=== PATIENT | female | born 1945 | race Hispanic/Latino ===

== ENCOUNTER 2017-07-08 11:02 | Inpatient (IN) | payer OTHER ==
[~2017-07-08] VITALS: Ht 167.6 cm; Wt 78.0 kg
[2017-07-08] MEDS ORDERED: ONDANSETRON HCL MDV 20ML 2 MG/ML VIAL ONE (11:19)
[2017-07-08 11:25] LABS: BASOPHILS % (AUTO) 0.2 % (0.0-5.0); EOSINOPHILS % (AUTO) 0.2 % (0.0-8.0); HEMATOCRIT 32.5 % (36-48); LYMPHOCYTES % (AUTO) 2.5 % (21.0-51.0); MEAN CORPUSCULAR HEMOGLOBIN 26.4 pg (27.0-33.0); MEAN CORPUSCULAR HGB CONC 31.7 g/dL (32.0-36.0); MEAN CORPUSCULAR VOLUME 83.4 fL (79-99); MONOCYTES % (AUTO) 1.2 % (3.0-13.0); NEUTROPHILS % (AUTO) 95.9 % (40.0-77.0); NUCLEATED RED BLOOD CELLS 0.1 % (0.0-0.19); PLATELET COUNT (AUTO) 205 K/uL (130-400); RED CELL DISTRIBUTION WIDTH 14.7 % (11.0-15.5); WHITE BLOOD COUNT (AUTO) 13.2 K/uL (4.8-10.8)
[2017-07-08 11:40] LABS: ALBUMIN 2.1 g/dL (3.5-5.0); BILIRUBIN,TOTAL 0.3 mg/dL (0.2-1.0); CREATININE 2.2 mg/dL (0.5-1.5); POTASSIUM 4.6 mmol/L (3.5-5.1); TOTAL PROTEIN, SERUM 6.5 g/dL (6.0-8.3)
[2017-07-08 12:29] LABS: BILIRUBIN,URINE NEGATIVE (NEGATIVE); COLOR,URINE YELLOW (YELLOW); GLUCOSE, URINE (UA) >=1000 mg/dL (NEGATIVE); KETONES,URINE 15 mg/dL (NEGATIVE); LEUKOCYTE ESTERASE ,URINE MODERATE (NEGATIVE); NITRATE,URINE POSITIVE (NEGATIVE); OCCULT BLOOD,URINE LARGE (NEGATIVE); PH,URINE 5.5 (5.0-8.0); PROTEIN,URINE 100 (NEGATIVE); UROBILINOGEN,URINE 0.2 mg/dL (0.2-1.0)
[2017-07-08 12:35] LABS: APPEARANCE,URINE HAZY (CLEAR)
[2017-07-08 12:39] LABS: BACTERIA,URINE Moderate /HPF (None Seen); SQUAMOUS EPITHELIAL CELL,UR Few /HPF (0-2); WBC,URINE TNTC /HPF (0-1)
[2017-07-08] MEDS ORDERED: INSULIN HUMULIN R 100 UNIT/ML 3ML ONE (12:39)
[2017-07-08 12:50] LABS: ABG BASE EXCESS -13.1 mmol/L (-2.0-3.0); ABG HCO3 9.5 mmol/L (21.0-28.0); ABG OXYGEN SATURATION 97.5 % (95.0-99.0); ABG PCO2 < 18 mmHg (32-45)
[2017-07-08] MEDS ORDERED: CEFTRIAXONE SODIUM 1 GM ONE (13:32)
[2017-07-08] MEDS ORDERED: SODIUM CHLORIDE 0.9% 100 ML IV ONE (13:32)
[2017-07-08] MEDS ORDERED: SODIUM CHLORIDE 0.9% 1000ML 1,000 ML IV ONE (13:51)
[2017-07-08] MEDS ORDERED: CLONIDINE HCL 0.1 MG TABLET PO PRN (14:15)
[2017-07-08] MEDS ORDERED: GLUCAGON 1MG KIT 1 MG ML IM PRN (14:15)
[2017-07-08] MEDS ORDERED: LACTULOSE 20 GM/30 ML UDCUP PO PRN (14:15)
[2017-07-08] MEDS ORDERED: INSULIN IV SS1 SQ PRN ×2 (14:15)
[2017-07-08] MEDS ORDERED: ACETAMINOPHEN 325 MG TAB PO PRN ×2 (14:15)
[2017-07-08] MEDS ORDERED: ONDANSETRON HCL MDV 20ML 2 MG/ML VIAL IVP PRN (14:15)
[2017-07-08] MEDS ORDERED: DEXTROSE 50%-WATER 50 ML DISP.SYRIN IV PRN (14:15)
[2017-07-08] MEDS: SODIUM CHLORIDE 0.9% 1000ML 1,000 ML IV SCH ×2 (14:15→20:55)
[2017-07-08] MEDS ORDERED: ENOXAPARIN SODIUM 30 MG/0.3 ML SQ ONE (18:18)
[2017-07-08 19:58] LABS: CREATININE 2.1 mg/dL (0.5-1.5)
[2017-07-08] MEDS ORDERED: HYDRALAZINE HCL 20 MG/ML VIAL IV PRN (22:30)
[2017-07-08] MEDS ORDERED: NOREPINEPHRINE BITARTRATE 1 MG/1 ML ML IV ONE (23:21)
[2017-07-08 23:54] LABS: ABG BASE EXCESS -10.9 mmol/L (-2.0-3.0); ABG HCO3 12.6 mmol/L (21.0-28.0); ABG OXYGEN SATURATION 96.6 % (95.0-99.0); ABG PCO2 22 mmHg (32-45)
[2017-07-09] VITALS (47 sets, daily range): BP systolic 76–152; BP diastolic 34–119
[2017-07-09 00:12] LABS: POTASSIUM 3.8 mmol/L (3.5-5.1)
[2017-07-09] MEDS ORDERED: INSULIN HUMULIN R 100 UNIT/ML 3ML ONE (00:30)
[2017-07-09] MEDS: SODIUM CHLORIDE 0.9% 1000ML 1,000 ML IV SCH ×4 (03:35→23:35)
[2017-07-09 04:03] LABS: BASOPHILS % (AUTO) 0.2 % (0.0-5.0); EOSINOPHILS % (AUTO) 0.3 % (0.0-8.0); HEMATOCRIT 26.8 % (36-48); LYMPHOCYTES % (AUTO) 3.8 % (21.0-51.0); MEAN CORPUSCULAR HEMOGLOBIN 27.6 pg (27.0-33.0); MEAN CORPUSCULAR HGB CONC 34.5 g/dL (32.0-36.0); MEAN CORPUSCULAR VOLUME 79.9 fL (79-99); MONOCYTES % (AUTO) 5.4 % (3.0-13.0); NEUTROPHILS % (AUTO) 90.3 % (40.0-77.0); PLATELET COUNT (AUTO) 184 K/uL (130-400); RED BLOOD CELL COUNT(AUTO) 3.35 MIL/uL (4.00-5.50); RED CELL DISTRIBUTION WIDTH 14.5 % (11.0-15.5); WHITE BLOOD COUNT (AUTO) 19.1 K/uL (4.8-10.8)
[2017-07-09 04:18] LABS: HEMOGLOBIN A1C 14.2 % (4.0-6.0)
[2017-07-09] MEDS: DEXTROSE 5 % AND 0.9 % NACL 1,000 ML IV SCH ×4 (04:24→18:22)
[2017-07-09 04:30] LABS: POTASSIUM 3.5 mmol/L (3.5-5.1)
[2017-07-09 08:31] LABS: CREATININE 1.9 mg/dL (0.5-1.5); POTASSIUM 3.3 mmol/L (3.5-5.1)
[2017-07-09] MEDS ORDERED: ENOXAPARIN SODIUM 30 MG/0.3 ML SQ SCH (09:00)
[2017-07-09 09:04] LABS: ABG BASE EXCESS -9.4 mmol/L (-2.0-3.0); ABG HCO3 12.3 mmol/L (21.0-28.0); ABG OXYGEN SATURATION 94.8 % (95.0-99.0); ABG PCO2 19 mmHg (32-45)
[2017-07-09] MEDS ORDERED: ACETAMINOPHEN 650 MG SUPPOSITORY RC ONE (09:29)
[2017-07-09] MEDS ORDERED: ACETAMINOPHEN 650 MG SUPPOSITORY RC PRN (10:00)
[2017-07-09] MEDS ORDERED: ACETAMINOPHEN 650 MG SUPPOSITORY RC SCH (10:00)
[2017-07-09] MEDS ORDERED: DIATR MEGLU/DIATRIZOATE SODIUM 30 ML BOTTLE ONE (10:16)
[2017-07-09] MEDS: MEROPENEM 500 MG VIAL IVP SCH ×2 (11:27→22:19)
[2017-07-09] MEDS ORDERED: CEFTRIAXONE SODIUM 1 GM IVP SCH (13:00)
[2017-07-09] MEDS ORDERED: MEROPENEM 500MG+NS 50ML 50 ML IV SCH (14:00)
[2017-07-09] MEDS ORDERED: NOREPINEPHRINE 4MG/NS 250ML 250 ML IV SCH (14:15)
[2017-07-09 14:47] LABS: POTASSIUM 2.9 mmol/L (3.5-5.1)
[2017-07-09] MEDS: POTASSIUM CHLORIDE 20MEQ/100ML 100 ML IV PRN ×2 (15:00→22:20)
[2017-07-09] MEDS: LIDOCAINE HCL-MPF 1% 2ML VIAL IVP PRN ×2 (15:01→22:20)
[2017-07-09 15:32] LABS: ABG BASE EXCESS -10.5 mmol/L (-2.0-3.0); ABG HCO3 11.8 mmol/L (21.0-28.0); ABG OXYGEN SATURATION 97.6 % (95.0-99.0); ABG PCO2 20 mmHg (32-45)
[2017-07-09] MEDS ORDERED: LACTATED RINGERS 1000ML 1,000 ML IV ONE (15:45)
[2017-07-09] MEDS ORDERED: LACTATED RINGERS 1000ML IV SCH (15:45)
[2017-07-09 16:08] LABS: POTASSIUM 3.2 mmol/L (3.5-5.1)
[2017-07-09] MEDS: IPRATROPIUM/ALBUTEROL SULFATE 3 ML SOLUTION IH SCH ×2 (18:00→23:11)
[2017-07-09] MEDS ORDERED: FUROSEMIDE 10 MG/ML 4ML VIAL ONE (18:02)
[2017-07-09] MEDS ORDERED: FLUCONAZOLE 200 MG/NS 100 ML 100 ML ONE (18:08)
[2017-07-09] MEDS: FUROSEMIDE 10 MG/ML 4ML VIAL IV SCH (18:10)
[2017-07-09] MEDS ORDERED: ISOVUE-370 50ML VIAL IV ONE (18:19)
[2017-07-09] MEDS: FLUCONAZOLE 200 MG/NS 100 ML 100 ML IV SCH (18:29)
[2017-07-09] MEDS ORDERED: EPHEDRINE SULFATE 50 MG/ML AMPULE ONE (18:55)
[2017-07-09] MEDS ORDERED: SUCCINYLCHOLINE CHLORIDE 20 MG/ML 10 ML VIAL ONE (18:55)
[2017-07-09] MEDS ORDERED: LIDOCAINE PF 2% 5ML ABBOJECT ONE (18:55)
[2017-07-09] MEDS ORDERED: ONDANSETRON HCL MDV 20ML 2 MG/ML VIAL ONE (18:55)
[2017-07-09] MEDS ORDERED: PROPOFOL 10 MG/ML 20ML VIAL IV ONE (18:55)
[2017-07-09] MEDS ORDERED: ROCURONIUM BROMIDE 10MG/1ML 5ML VL ONE (18:55)
[2017-07-09] MEDS ORDERED: FENTANYL CITRATE PF 50 MCG/1 ML 2ML VIAL ONE (18:56)
[2017-07-09 21:42] LABS: POTASSIUM 3.2 mmol/L (3.5-5.1)
[2017-07-10] VITALS (24 sets, daily range): BP systolic 97–146; BP diastolic 42–75
[2017-07-10 00:41] LABS: POTASSIUM 3.5 mmol/L (3.5-5.1)
[2017-07-10] MEDS: LIDOCAINE HCL-MPF 1% 2ML VIAL IVP PRN ×3 (00:59→22:30)
[2017-07-10] MEDS: POTASSIUM CHLORIDE 20MEQ/100ML 100 ML IV PRN ×3 (00:59→22:30)
[2017-07-10] MEDS: DEXTROSE 5 % AND 0.9 % NACL 1,000 ML IV SCH ×2 (01:58→08:27)
[2017-07-10 03:50] LABS: BASOPHILS % (AUTO) 0.3 % (0.0-5.0); EOSINOPHILS % (AUTO) 0.3 % (0.0-8.0); HEMATOCRIT 23.2 % (36-48); MEAN CORPUSCULAR HEMOGLOBIN 26.7 pg (27.0-33.0); MEAN CORPUSCULAR HGB CONC 33.8 g/dL (32.0-36.0); MEAN CORPUSCULAR VOLUME 79.1 fL (79-99); NEUTROPHILS % (AUTO) 83.4 % (40.0-77.0); PLATELET COUNT (AUTO) 108 K/uL (130-400); RED BLOOD CELL COUNT(AUTO) 2.93 MIL/uL (4.00-5.50); WHITE BLOOD COUNT (AUTO) 11.9 K/uL (4.8-10.8)
[2017-07-10 03:57] LABS: MAGNESIUM 1.2 mg/dL (1.80-2.40); PHOSPHORUS 0.8 mg/dL (2.5-4.9)
[2017-07-10 04:06] LABS: ABG HCO3 14.3 mmol/L (21.0-28.0); ABG PCO2 21 mmHg (32-45)
[2017-07-10 04:11] LABS: ABG BASE EXCESS -9.1 mmol/L (-2.0-3.0); ABG HCO3 12.9 mmol/L (21.0-28.0); ABG OXYGEN SATURATION 98.9 % (95.0-99.0); ABG PCO2 21 mmHg (32-45)
[2017-07-10 04:16] LABS: B-TYPE NATRIURETIC PEPTIDE 567 pg/mL (0-100)
[2017-07-10] MEDS: SODIUM CHLORIDE 0.9% 1000ML 1,000 ML IV SCH (06:15)
[2017-07-10] MEDS: IPRATROPIUM/ALBUTEROL SULFATE 3 ML SOLUTION IH SCH ×4 (06:28→23:38)
[2017-07-10] MEDS: MEROPENEM 500 MG VIAL IVP SCH (08:28)
[2017-07-10] MEDS: MAGNESIUM 2GM PREMIX 50ML 50 ML IV PRN (08:41)
[2017-07-10] MEDS ORDERED: RAMI5CAP21 PO (09:38)
[2017-07-10] MEDS ORDERED: METF10004 PO (09:38)
[2017-07-10] MEDS ORDERED: AMLO5TAB2 PO (09:38)
[2017-07-10] MEDS ORDERED: CEFTRIAXONE 2GM+NS 100ML 100 ML IV SCH (14:00)
[2017-07-10] MEDS: CEFTRIAXONE SODIUM 2 GM VIAL IVP SCH (15:44)
[2017-07-10] MEDS: FLUCONAZOLE 200 MG/NS 100 ML 100 ML IV SCH (15:45)
[2017-07-10] MEDS ORDERED: INSULIN REGULAR, HUMAN 3ML 100 UNIT in SODIUM CHLORIDE 0.9% 99 ML IV SCH ×2 (17:45)
[2017-07-10] MEDS: FUROSEMIDE 10 MG/ML 4ML VIAL IV SCH (18:00)
[2017-07-10 19:28] LABS: MAGNESIUM 1.8 mg/dL (1.80-2.40); POTASSIUM 3.1 mmol/L (3.5-5.1)
[2017-07-11] VITALS (27 sets, daily range): BP systolic 99–154; BP diastolic 47–96
[2017-07-11] MEDS ORDERED: DEXTROSE 5 % AND 0.9 % NACL 1,000 ML IV SCH
[2017-07-11] MEDS: MAGNESIUM 2GM PREMIX 50ML 50 ML IV PRN (00:45)
[2017-07-11 02:46] LABS: BASOPHILS % (AUTO) 0.1 % (0.0-5.0); CREATININE 1.9 mg/dL (0.5-1.5); EOSINOPHILS % (AUTO) 0.7 % (0.0-8.0); HEMATOCRIT 21.9 % (36-48); LYMPHOCYTES % (AUTO) 15.4 % (21.0-51.0); MEAN CORPUSCULAR HEMOGLOBIN 26.1 pg (27.0-33.0); MEAN CORPUSCULAR HGB CONC 33.1 g/dL (32.0-36.0); MEAN CORPUSCULAR VOLUME 78.7 fL (79-99); MONOCYTES % (AUTO) 6.7 % (3.0-13.0); NEUTROPHILS % (AUTO) 77.1 % (40.0-77.0); PLATELET COUNT (AUTO) 103 K/uL (130-400); POTASSIUM 3.2 mmol/L (3.5-5.1); RED BLOOD CELL COUNT(AUTO) 2.78 MIL/uL (4.00-5.50); RED CELL DISTRIBUTION WIDTH 15.2 % (11.0-15.5); WHITE BLOOD COUNT (AUTO) 9.9 K/uL (4.8-10.8)
[2017-07-11] MEDS: POTASSIUM CHLORIDE 20MEQ/100ML 100 ML IV PRN (03:04)
[2017-07-11] MEDS: LIDOCAINE HCL-MPF 1% 2ML VIAL IVP PRN (03:05)
[2017-07-11] MEDS: IPRATROPIUM/ALBUTEROL SULFATE 3 ML SOLUTION IH SCH ×3 (07:07→18:35)
[2017-07-11] MEDS: FLUCONAZOLE 200 MG/NS 100 ML 100 ML IV SCH (08:42)
[2017-07-11] MEDS: POTASSIUM CHLORIDE 10% ELIXIR 20 MEQ/15 ML UDCUP PO PRN ×2 (10:13→15:29)
[2017-07-11] MEDS: INSULIN HUMULIN R 100 UNIT/ML 3ML SQ SCH ×3 (10:30→21:00)
[2017-07-11 11:54] LABS: ABG BASE EXCESS -9.7 mmol/L (-2.0-3.0); ABG HCO3 12.3 mmol/L (21.0-28.0); ABG OXYGEN SATURATION 98.1 % (95.0-99.0); ABG PCO2 20 mmHg (32-45)
[2017-07-11] MEDS: CEFTRIAXONE SODIUM 2 GM VIAL IVP SCH (14:15)
[2017-07-11] MEDS: INSULIN HUMULIN 70/30 100 UNIT/ML 3ML SQ SCH (16:56)
[2017-07-11] MEDS: FUROSEMIDE 10 MG/ML 4ML VIAL IV SCH (17:04)
[2017-07-11 19:23] LABS: CREATININE 1.6 mg/dL (0.5-1.5); POTASSIUM 3.8 mmol/L (3.5-5.1)
[2017-07-12] VITALS (13 sets, daily range): BP systolic 110–164; BP diastolic 39–85
[2017-07-12] MEDS: IPRATROPIUM/ALBUTEROL SULFATE 3 ML SOLUTION IH SCH ×5 (00:01→23:25)
[2017-07-12 03:54] LABS: ABG BASE EXCESS -8.7 mmol/L (-2.0-3.0); ABG HCO3 13.5 mmol/L (21.0-28.0); ABG OXYGEN SATURATION 97.9 % (95.0-99.0); ABG PCO2 22 mmHg (32-45)
[2017-07-12 03:54] LABS: HEMATOCRIT 30.3 % (36-48); MEAN CORPUSCULAR HEMOGLOBIN 26.8 pg (27.0-33.0); MEAN CORPUSCULAR HGB CONC 33.7 g/dL (32.0-36.0); MEAN CORPUSCULAR VOLUME 79.4 fL (79-99); PLATELET COUNT (AUTO) 136 K/uL (130-400); RED BLOOD CELL COUNT(AUTO) 3.81 MIL/uL (4.00-5.50); RED CELL DISTRIBUTION WIDTH 15.2 % (11.0-15.5); WHITE BLOOD COUNT (AUTO) 13.7 K/uL (4.8-10.8)
[2017-07-12 04:05] LABS: CREATININE 1.6 mg/dL (0.5-1.5); POTASSIUM 3.4 mmol/L (3.5-5.1)
[2017-07-12] MEDS: POTASSIUM CHLORIDE 20 MEQ ERTAB PO PRN (06:20)
[2017-07-12] MEDS: INSULIN HUMULIN R 100 UNIT/ML 3ML SQ SCH ×4 (06:22→19:38)
[2017-07-12] MEDS: INSULIN HUMULIN 70/30 100 UNIT/ML 3ML SQ SCH ×2 (06:34→16:54)
[2017-07-12] MEDS: FLUCONAZOLE 200 MG/NS 100 ML 100 ML IV SCH (08:51)
[2017-07-12] MEDS: CEFTRIAXONE SODIUM 2 GM VIAL IVP SCH (16:34)
[2017-07-12] MEDS: FUROSEMIDE 10 MG/ML 4ML VIAL IV SCH (18:00)
[2017-07-13 03:19] VITALS: BP 137/73
[2017-07-13 04:27] LABS: HEMATOCRIT 25.5 % (36-48); MEAN CORPUSCULAR HEMOGLOBIN 27.2 pg (27.0-33.0); MEAN CORPUSCULAR HGB CONC 34.5 g/dL (32.0-36.0); MEAN CORPUSCULAR VOLUME 78.8 fL (79-99); PLATELET COUNT (AUTO) 173 K/uL (130-400); RED BLOOD CELL COUNT(AUTO) 3.24 MIL/uL (4.00-5.50); RED CELL DISTRIBUTION WIDTH 15.4 % (11.0-15.5); WHITE BLOOD COUNT (AUTO) 17.9 K/uL (4.8-10.8)
[2017-07-13 04:48] LABS: ALBUMIN 1.4 g/dL (3.5-5.0); BILIRUBIN,TOTAL 0.6 mg/dL (0.2-1.0); CREATININE 1.3 mg/dL (0.5-1.5); MAGNESIUM 1.4 mg/dL (1.80-2.40); POTASSIUM 3.4 mmol/L (3.5-5.1); TOTAL PROTEIN, SERUM 5.7 g/dL (6.0-8.3)
[2017-07-13] MEDS: INSULIN HUMULIN 70/30 100 UNIT/ML 3ML SQ SCH ×3 (05:52→16:53)
[2017-07-13] MEDS: INSULIN HUMULIN R 100 UNIT/ML 3ML SQ SCH ×4 (05:53→21:17)
[2017-07-13] MEDS: IPRATROPIUM/ALBUTEROL SULFATE 3 ML SOLUTION IH SCH ×4 (06:21→23:23)
[2017-07-13 08:00] VITALS: BP 144/67
[2017-07-13] MEDS: CEFTRIAXONE SODIUM 2 GM VIAL IVP SCH (09:37)
[2017-07-13] MEDS: FLUCONAZOLE 200 MG/NS 100 ML 100 ML IV SCH (09:37)
[2017-07-13 12:00] VITALS: BP 134/63
[2017-07-13] MEDS ORDERED: FUROSEMIDE 20 MG TABLET PO SCH (15:15)
[2017-07-13 16:00] VITALS: BP 134/65
[2017-07-13] MEDS: FUROSEMIDE 20 MG TABLET PO SCH (16:52)
[2017-07-13] MEDS: POTASSIUM CHLORIDE 10% ELIXIR 20 MEQ/15 ML UDCUP PO PRN ×2 (16:52→18:13)
[2017-07-13 19:04] VITALS: BP 137/64
[2017-07-13 23:01] VITALS: BP 134/66
[2017-07-14 03:27] VITALS: BP 137/64
[2017-07-14 03:51] LABS: HEMATOCRIT 24.7 % (36-48); MEAN CORPUSCULAR HEMOGLOBIN 26.6 pg (27.0-33.0); MEAN CORPUSCULAR VOLUME 78.3 fL (79-99); PLATELET COUNT (AUTO) 253 K/uL (130-400); RED BLOOD CELL COUNT(AUTO) 3.15 MIL/uL (4.00-5.50); RED CELL DISTRIBUTION WIDTH 15.3 % (11.0-15.5); WHITE BLOOD COUNT (AUTO) 15.3 K/uL (4.8-10.8)
[2017-07-14 04:01] LABS: B-TYPE NATRIURETIC PEPTIDE 408 pg/mL (0-100); CREATININE 1.1 mg/dL (0.5-1.5); MAGNESIUM 1.2 mg/dL (1.80-2.40); PHOSPHORUS 2.6 mg/dL (2.5-4.9); POTASSIUM 3.3 mmol/L (3.5-5.1)
[2017-07-14] MEDS: FUROSEMIDE 20 MG TABLET PO SCH ×2 (05:12→16:38)
[2017-07-14] MEDS: INSULIN HUMULIN R 100 UNIT/ML 3ML SQ SCH ×4 (05:49→21:00)
[2017-07-14] MEDS: IPRATROPIUM/ALBUTEROL SULFATE 3 ML SOLUTION IH SCH ×4 (05:56→23:16)
[2017-07-14] MEDS: INSULIN HUMULIN 70/30 100 UNIT/ML 3ML SQ SCH ×2 (06:17→16:40)
[2017-07-14] MEDS: MAGNESIUM 2GM PREMIX 50ML 50 ML IV PRN (06:31)
[2017-07-14] MEDS: POTASSIUM CHLORIDE 20 MEQ ERTAB PO PRN ×3 (06:31→16:38)
[2017-07-14 07:47] VITALS: BP 146/75
[2017-07-14] MEDS: FLUCONAZOLE 200 MG/NS 100 ML 100 ML IV SCH (08:33)
[2017-07-14] MEDS: CEFTRIAXONE SODIUM 2 GM VIAL IVP SCH (08:41)
[2017-07-14] MEDS ORDERED: ENOXAPARIN SODIUM 30 MG/0.3 ML SQ SCH (09:00)
[2017-07-14] MEDS: ENOXAPARIN SODIUM 40 MG/0.4 ML SYRINGE SQ SCH (09:31)
[2017-07-14 11:10] VITALS: BP 142/67
[2017-07-14] MEDS ORDERED: MAGNESIUM 4GM PREMIX 100ML 100 ML IV ONE (14:00)
[2017-07-14 16:10] VITALS: BP 136/62
[2017-07-14 19:00] VITALS: BP 129/58
[2017-07-14] MEDS: MAGNESIUM 2GM PREMIX 50ML 50 ML IV SCH (22:14)
[2017-07-14 23:00] VITALS: BP 139/63
[2017-07-15 03:00] VITALS: BP 145/89
[2017-07-15 04:15] LABS: HEMATOCRIT 22.7 % (36-48); MEAN CORPUSCULAR HEMOGLOBIN 28.3 pg (27.0-33.0); MEAN CORPUSCULAR HGB CONC 35.9 g/dL (32.0-36.0); MEAN CORPUSCULAR VOLUME 78.8 fL (79-99); PLATELET COUNT (AUTO) 292 K/uL (130-400); RED BLOOD CELL COUNT(AUTO) 2.88 MIL/uL (4.00-5.50); RED CELL DISTRIBUTION WIDTH 15.7 % (11.0-15.5); WHITE BLOOD COUNT (AUTO) 14.2 K/uL (4.8-10.8)
[2017-07-15 04:24] LABS: CREATININE 1.1 mg/dL (0.5-1.5); MAGNESIUM 1.7 mg/dL (1.80-2.40); POTASSIUM 3.3 mmol/L (3.5-5.1)
[2017-07-15] MEDS ORDERED: POTASSIUM CHLORIDE 10 MEQ/TAB.SA PO ONE ×4 (04:48→06:10)
[2017-07-15] MEDS: MAGNESIUM 2GM PREMIX 50ML 50 ML IV SCH (04:57)
[2017-07-15] MEDS: FUROSEMIDE 20 MG TABLET PO SCH (04:58)
[2017-07-15] MEDS: IPRATROPIUM/ALBUTEROL SULFATE 3 ML SOLUTION IH SCH (06:07)
[2017-07-15] MEDS: INSULIN HUMULIN R 100 UNIT/ML 3ML SQ SCH ×3 (06:47→16:30)
[2017-07-15 07:00] VITALS: BP 139/63
[2017-07-15] MEDS: INSULIN HUMULIN 70/30 100 UNIT/ML 3ML SQ SCH (07:00)
[2017-07-15] MEDS: CEFTRIAXONE SODIUM 2 GM VIAL IVP SCH ×2 (09:00→12:07)
[2017-07-15] MEDS ORDERED: CEFAZOLIN SODIUM 1 GM VIAL IVP SCH (10:15)
[2017-07-15] MEDS: FLUCONAZOLE 200 MG/NS 100 ML 100 ML IV SCH (10:27)
[2017-07-15] MEDS: ENOXAPARIN SODIUM 40 MG/0.4 ML SYRINGE SQ SCH (10:29)
[2017-07-15 11:00] VITALS: BP 140/58
[2017-07-15 16:00] VITALS: BP 159/72
== END 2017-07-15 18:30 | disposition home or self-care (01) | DRG 871 ==
LOC: EDH 11:02 → EDHIP 12:50 → 2CH 07-09 03:29 → 2AH 07-12 19:42
PROVIDERS: ADMIT Family Medicine; ATTEND Family Medicine
PROC: 30233N1 Transfusion of Nonautologous Red Blood Cells into Peripheral Vein, Percutaneous Approach (ICD-10-PCS; principal; 2017-07-09 18:54)
PROC: BT1F0ZZ Fluoroscopy of Left Kidney, Ureter and Bladder using High Osmolar Contrast (ICD-10-PCS; 2017-07-09 18:54)
PROC: 0T778DZ Dilation of Left Ureter with Intraluminal Device, Via Natural or Artificial Opening Endoscopic (ICD-10-PCS; 2017-07-09 18:54)
DX: A41.9 Sepsis, unspecified organism (principal); G93.41 Metabolic encephalopathy; E11.10 Type 2 diabetes mellitus with ketoacidosis without coma; N17.9 Acute kidney failure, unspecified; J18.9 Pneumonia, unspecified organism; E87.0 Hyperosmolality and hypernatremia; E87.2 Acidosis; E86.0 Dehydration; N13.6 Pyonephrosis; E11.65 Type 2 diabetes mellitus with hyperglycemia; D64.9 Anemia, unspecified; B96.1 Klebsiella pneumoniae [K. pneumoniae] as the cause of diseases classified elsewhere; B96.89 Other specified bacterial agents as the cause of diseases classified elsewhere; E66.01 Morbid (severe) obesity due to excess calories; E78.5 Hyperlipidemia, unspecified; I10 Essential (primary) hypertension; J20.9 Acute bronchitis, unspecified; K29.70 Gastritis, unspecified, without bleeding; M79.5 Residual foreign body in soft tissue; Z68.27 Body mass index [BMI] 27.0-27.9, adult; Z87.442 Personal history of urinary calculi; Z90.710 Acquired absence of both cervix and uterus; Z91.19 Patient's noncompliance with other medical treatment and regimen
CPT/HCPCS: 36415; 36430; 36600; 70450; 71045; 71046; 71250; 74176; 74420; 76770; 80048; 80053; 81001; 82009; 82140; 82150; 82330; 82435; 82550; 82803; 82947; 82948; 83036; 83605; 83690; 83735; 83880; 84100; 84132; 84295; 84484; 85018; 85025; 85027; 86850; 86900; 86901; 86922; 87040; 87071; 87088; 87186; 87205; 88304; 93005; 94640; 94664; 97039; 99291; A4218; A4344; C1758; C1769; C2617; J0330; J0696; J1450; J1650; J1815; J1940; J2001; J2185; J2704; J3010; J3475; J3480; J3490; J7030; J7042; J7120; P9016; Q9963; Q9967

== ENCOUNTER 2020-07-30 11:39 | Emergency (ER) | payer OTHER ==
[~2020-07-30] VITALS: Ht 162.6 cm; Wt 81.6 kg
[~2020-07-30 11:39] MED LIST: 0.9%NACL 10ML VIAL IVP SCH; AMLO-257 PO; METF-446 PO; RAMI5CAP66 PO
[2020-07-30 12:24] LABS: BASOPHILS % (AUTO) 0.5 % (0.0-5.0); EOSINOPHILS % (AUTO) 1.7 % (0.0-8.0); HEMATOCRIT 35.2 % (36-48); LYMPHOCYTES % (AUTO) 18.8 % (21.0-51.0); MEAN CORPUSCULAR HEMOGLOBIN 28.4 pg (27.0-33.0); MEAN CORPUSCULAR HGB CONC 32.1 g/dL (32.0-36.0); MEAN CORPUSCULAR VOLUME 88.4 fL (79-99); MONOCYTES % (AUTO) 6.5 % (3.0-13.0); NEUTROPHILS % (AUTO) 71.8 % (40.0-77.0); PLATELET COUNT (AUTO) 280 K/uL (130-400); RED BLOOD CELL COUNT(AUTO) 3.98 MIL/uL (4.00-5.50); RED CELL DISTRIBUTION WIDTH 13.4 % (11.0-15.5); WHITE BLOOD COUNT (AUTO) 8.8 K/uL (4.8-10.8)
[2020-07-30 12:30] VITALS: BP 166/59
[2020-07-30 12:33] LABS: CREATININE 1.2 mg/dL (0.5-1.5); POTASSIUM 5.3 mmol/L (3.5-5.1)
[2020-07-30 12:34] LABS: INR 0.97 (0.85-1.15); PROTHROMBIN TIME 10.6 SEC (9.6-11.6)
[2020-07-30 12:38] LABS: ALBUMIN 3.9 g/dL (3.5-5.0); BILIRUBIN,TOTAL 0.4 mg/dL (0.2-1.0); TOTAL PROTEIN, SERUM 8.1 g/dL (6.0-8.3)
[2020-07-30] MEDS ORDERED: IOHEXOL-350 75 ML VIAL IV ONE (14:11)
[2020-07-30 16:42] VITALS: BP 127/44
[2020-07-30] MEDS ORDERED: LORAZEPAM 2 MG/ML 1 ML VIAL ONE (18:32)
[2020-07-30 18:39] VITALS: BP 136/55
[2020-07-30 19:30] VITALS: BP 111/42
[2020-07-30 22:30] VITALS: BP 146/62
[2020-07-30 22:43] LABS: APPEARANCE,URINE Clear (CLEAR); BILIRUBIN,URINE Negative (NEGATIVE); COLOR,URINE Yellow (YELLOW); GLUCOSE, URINE (UA) >=1000 mg/dL (NEGATIVE); KETONES,URINE Trace mg/dL (NEGATIVE); LEUKOCYTE ESTERASE ,URINE Negative (NEGATIVE); NITRATE,URINE Negative (NEGATIVE); OCCULT BLOOD,URINE Negative (NEGATIVE); PROTEIN,URINE Negative (NEGATIVE); UROBILINOGEN,URINE 0.2 mg/dL (0.2-1.0)
[2020-07-30 22:57] LABS: BACTERIA,URINE Rare /HPF (None Seen); RBC,URINE 0-1 /HPF (0-1); WBC,URINE 0-1 /HPF (0-1)
[2020-07-30] MEDS ORDERED: CEFTRIAXONE 1G VIAL IVP SCH (23:15)
[2020-07-30] MEDS ORDERED: NACL 0.9% 1000ML 1,000 ML IV ONE (23:45)
[2020-07-31] MEDS ORDERED: CEPH250C2 PO (00:14)
[2020-07-31 01:26] VITALS: BP 146/62
== END 2020-07-31 01:38 | disposition home or self-care (01) ==
LOC: EDH 11:39
DX: N30.00 Acute cystitis without hematuria (principal); E11.65 Type 2 diabetes mellitus with hyperglycemia; R41.0 Disorientation, unspecified; I10 Essential (primary) hypertension; F32.9 Major depressive disorder, single episode, unspecified; Z79.899 Other long term (current) drug therapy; Z79.82 Long term (current) use of aspirin; Z79.84 Long term (current) use of oral hypoglycemic drugs
CPT/HCPCS: 36415; 70450; 70496; 70498; 70551; 71045; 80053; 81001; 82550; 84484; 85025; 85610; 85730; 92610; 93005; 96365; 96375; 99285; J0696; J2060; Q9967